=== PATIENT | male | born 1950 | race African-American/Black ===

== ENCOUNTER 2021-02-21 23:45 | Emergency (ER) | payer MEDICARE ==
[2021-02-22 00:04] VITALS: BP 146/89
[2021-02-22] MEDS ORDERED: KETOROLAC 30 MG/1 ML INJ IV ONE (00:12)
--- NOTE | 2021-02-22 00:58 | Emergency Department Report ---
ED Abdominal Pain HPI - General Chief Complaint: Abdominal Pain Stated Complaint: GALLSTONE Time Seen by Provider: 02/22/21 00:12 Source: patient Limitations: Language Barrier (Family translates at the request of the patient. 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 He has been having pain to the right upper quadrant for the last several weeks now. Outpatient imaging showed a 10 mm gallstone "near the neck of the gallbladder." He was having ongoing pain. He was told that he needed a CT and was referred here. Patient states that he has no fevers or chills. There is nausea and vomiting. Pain is constant and aching in the right upper quadrant. Does not radiate or migrate. It is worse with food. Patient has not seen a surgeon or been referred to a surgeon as of yet. He has no trauma. - Related Data Previous Rx's Medication Instructions Recorded Last Taken Type HYDROcodone/APAP 5-325 [[place] 1 each PO Q6HR PRN #12 tablet 02/22/21 Unknown Rx 5/325] Allergies Allergy/AdvReac Type Severity Reaction Status Date / Time No Known Allergies Allergy Unverified 02/22/21 00:04 ED Review of Systems ROS: Stated complaint: GALLSTONE Other details as noted in HPI Comment: All other systems reviewed and negative Constitutional: denies: fever Eyes: denies: vision change ENT: denies: throat pain Respiratory: denies: cough Cardiovascular: denies: chest pain Endocrine: denies: unexplained weight loss Gastrointestinal: as per HPI Genitourinary: denies: dysuria Musculoskeletal: denies: back pain Skin: denies: rash Neurological: denies: headache Hematological/Lymphatic: denies: easy bruising ED Past Medical Hx - Past Medical History Previous Medical History?: No Additional medical history: Gallstones - Surgical History Past Surgical History?: No - Family History Family history: no significant - Medications Home Medications: Home Medications Medication Instructions Recorded Confirmed Last Taken Type HYDROcodone/APAP 5-325 [[place] 1 each PO Q6HR PRN #12 tablet 02/22/21 Unknown Rx 5/325] ED Physical Exam - General Limitations: Language Barrier (Family translates at the request of the patient), Other (Pulse ox noted and normal) General appearance: alert, in no apparent distress - Head Head exam: Present: atraumatic, normocephalic, normal inspection - Eye Eye exam: Present: normal appearance, EOMI. Absent: scleral icterus - ENT ENT exam: Present: mucous membranes moist, normal external ear exam - Neck Neck exam: Present: normal inspection. Absent: meningismus - Respiratory Respiratory exam: Present: normal lung sounds bilaterally. Absent: respiratory distress - Cardiovascular Cardiovascular Exam: Present: regular rate, normal rhythm - GI/Abdominal GI/Abdominal exam: Present: soft, tenderness (Right upper quadrant). Absent: guarding, rebound - Extremities Exam Extremities exam: Present: normal capillary refill - Back Exam Back exam: Absent: CVA tenderness (R), CVA tenderness (L) - Neurological Exam Neurological exam: Present: alert, oriented X3, CN II-XII intact, normal gait. Absent: motor sensory deficit - Psychiatric Psychiatric exam: Present: normal affect, normal mood - Skin Skin exam: Present: warm, dry ED Course Vital Signs 02/22/21 00:01 Pulse Rate 76 Respiratory 16 Rate Blood Pressure 146/89 [Left] O2 Sat by Pulse 98 Oximetry - Reevaluation(s) Reevaluation #1: 02/22/21 00:57 Outpatient ultrasound results have been noted. IV and labs ordered. Ultrasound was repeated. Old records reviewed Reevaluation #2: 02/22/21 04:05 Work-up was complete and the patient was discharged ED Medical Decision Making - Lab Data Result diagrams: 02/22/21 00:34 02/22/21 00:34 - Radiology Data Radiology results: report reviewed - Medical Decision Making Patient presents with intercostal pain and had an outpatient ultrasound that demonstrated biliary disease. Repeat ultrasound was obtained looking for evidence of an impacted stone which was negative. He did not have hepatitis or pancreatitis. He did not appear to be septic or toxic. There is no evidence of acute cholecystitis or cholangitis. Patient was treated symptomatically. An outpatient radiologist thought a CT would be beneficial however I do not believe CT is necessary given his current presentation. Critical Care Time: No Critical care attestation.: If time is entered above; I have spent that time in minutes in the direct care of this critically ill patient, excluding procedure time. ED Disposition Clinical Impression: Right upper quadrant pain, Biliary colic Disposition: HOME / SELF CARE / HOMELESS Is pt being admited?: No Condition: Stable Instructions: Biliary Colic, Adult Additional Instructions: Have a bland diet. Drink plenty of fluids. Return for problems. Follow-up with your regular doctor for recheck and further management. Follow-up with surgery as referred. Prescriptions: HYDROcodone/APAP 5-325 [[place] 5/325] 1 each PO Q6HR PRN #12 tablet PRN Reason: Pain Referrals: PRIMARY CARE, [Referring] - 3-5 Days MARICARMEN LUKE MD [Staff Physician] - 3-5 Days LEO YODER MD [Staff Physician] - 3-5 Days
[2021-02-22 01:05] LABS: Basophils % (Auto) 0.3 % (0.0-1.8); Eosinophils # (Auto) 0.1 K/mm3 (0.0-0.4); Eosinophils % (Auto) 1.2 % (0.0-4.3); Hematocrit 42.9 % (35.5-45.6); Hemoglobin 13.9 gm/dl (11.8-15.2); Lymphocytes # (Auto) 1.5 K/mm3 (1.2-5.4); Lymphocytes % (Auto) 18.5 % (13.4-35.0); Mean Corpuscular HGB Conc 32 % (32-34); Mean Corpuscular Volume 86 fl (84-94); Monocytes # (Auto) 0.6 K/mm3 (0.0-0.8); Monocytes % (Auto) 7.5 % (0.0-7.3); Platelet Count 252 K/mm3 (140-440); Red Blood Count 4.99 M/mm3 (3.65-5.03)
[2021-02-22 01:06] LABS: BUN/Creatinine Ratio 15; Blood Urea Nitrogen 18 mg/dL (9-20); Calcium 9.8 mg/dL (8.4-10.2); Hemolysis Index 14
--- NOTE | 2021-02-22 03:38 | Ultrasound Report ---
LIMITED RUQ ABDOMINAL ULTRASOUND INDICATION / CLINICAL INFORMATION: ruq pain. COMPARISON: No relevant prior imaging study available. FINDINGS: PANCREAS: Visualized portions of the pancreas are within normal limits. ABDOMINAL AORTA: No significant abnormality. IVC: No significant abnormality. LIVER: The liver measures 14.2 cm in length. The liver demonstrates increased echogenicity, compatib le with fatty infiltration. No focal hepatic lesion. PORTAL VEIN: Normal hepatopedal blood flow in the main portal vein. GALLBLADDER: Gallbladder is mildly distended without significant wall thickening. No cholelithiasis. BILE DUCTS: No significant abnormality. Common bile duct measures 3 mm. RIGHT KIDNEY: No significant abnormality visualized. FREE FLUID: None. ADDITIONAL FINDINGS: None. IMPRESSION: 1. Fatty infiltration of the liver. 2. Otherwise, no significant abnormality. Signer Name: Milton Almaguer MD Signed: 02/22/2021 3:33 AM Workstation Name: [id number]
== END 2021-02-22 04:15 | disposition home or self-care (01) ==
LOC: ED 23:45
DX: K80.50 Calculus of bile duct without cholangitis or cholecystitis without obstruction (principal); Z79.899 Other long term (current) drug therapy
CPT/HCPCS: 36415; 76705; 80048; 82150; 83690; 85025; 96374; 99284; J1885